=== PATIENT | male | born 1975 | race Caucasian/White ===

== ENCOUNTER 2016-07-26 10:51 | Emergency (ER) | payer SELFPAY ==
[~2016-07-26] VITALS: Ht 175.3 cm; Wt 116.3 kg
[2016-07-26 11:19] VITALS: BP 261/142
== END 2016-07-26 11:45 | disposition home or self-care (01) ==
LOC: ED 11:34
DX: J20.9 Acute bronchitis, unspecified (principal); I10 Essential (primary) hypertension; F17.200 Nicotine dependence, unspecified, uncomplicated
CPT/HCPCS: 99283

== ENCOUNTER 2016-11-04 11:53 | Emergency (ER) | payer SELFPAY ==
[~2016-11-04] VITALS: Ht 177.8 cm; Wt 119.0 kg
[2016-11-04 11:55] VITALS: BP 237/154
== END 2016-11-04 12:20 | disposition home or self-care (01) ==
LOC: ED 12:10
DX: I10 Essential (primary) hypertension (principal); Z76.0 Encounter for issue of repeat prescription
CPT/HCPCS: 99283